=== PATIENT | male | born 1970 | race Caucasian/White ===

== ENCOUNTER 2024-05-04 22:56 | Day surgery (SDC) | payer BC, SELFPAY ==
[2024-05-04 18:43] VITALS: BP 165/111
[2024-05-04 19:03] LABS: % Basophils 0.5 % (0-2); % Eosinophils 1.2 % (0-6); % Immature Granulocytes 0.3 % (0-0.5); % Lymphocytes 13.2 % (20.5-51.1); % Monocytes 8.3 % (1.7-9.3); % Neutrophils 76.5 % (42.2-75.2); Absolute Basophils 0.1 10^3/uL (0-0.2); Absolute Eosinophils 0.1 10^3/uL (0-0.7); Absolute Lymphocytes 1.3 10^3/uL (1.2-3.4); Absolute Monocytes 0.8 10^3/uL (0.1-0.6); Absolute Neutrophils 7.8 10^3/uL (1.4-6.5); Hematocrit 43.2 % (39.0-52.0); Hemoglobin 15.9 g/dL (13.0-18.0); Mean Corp Hgb Conc. 36.8 g/dL (33.0-37.0); Mean Corpuscular Hgb 32.1 pg (27.0-31.0); Mean Corpuscular Volume 87.1 fL (80.0-94.0); Mean Platelet Volume 9.6 fL (7.4-10.4); Nucleated Red Blood Cells % 0 % (-); Platelet Count 236 10^3/uL (130-400); Red Blood Cell Count 4.96 10^6/uL (4.70-6.10); Red Cell Dist. Width 14.1 % (11.5-14.5); White Blood Cell Count 10.2 10^3/uL (4.8-10.8)
[2024-05-04 19:18] LABS: COVID-19 Antigen Negative (Negative)
[2024-05-04 19:25] LABS: ALT (SGPT) 113 U/L (0-50); AST (SGOT) 50 U/L (17-59); Albumin 4.9 g/dl (3.5-5.0); Alkaline Phosphatase 85 U/L (38-126); Blood Urea Nitrogen 13 mg/dl (9-20); Calcium 9.9 mg/dl (8.4-10.2); Carbon Dioxide 28 mmol/L (22-30); Glucose 132 mg/dl (70-99); Lipase 182 U/L (23-300); Total Bilirubin 4.1 mg/dl (0.2-1.3); Total Protein 7.6 g/dl (6.3-8.2); Troponin I 0.016 ng/ml; eGFR > 60.00
[2024-05-04 19:35] LABS: Chloride 101 mmol/L (98-107); Potassium 4.2 mmol/L (3.5-5.1); Sodium 136 mmol/L (135-145)
--- NOTE | 2024-05-04 20:13 | ED.GENMED ---
History of Present Illness
General
Chief Complaint: Abdominal Pain
Time Seen by Provider: 05/04/24 20:13
History of Present Illness
History of Present Illness:
HPI: Patient presents with upper abdominal pain associated with some intermittent nausea. This has been ongoing for the past day or 2. He had trouble sleeping last night because the pain was so significant. He denies having any abdominal
surgeries in the past. When I talked to him about his bilirubin of 4, he states that his dad has something similar and it sounds like he may have been diagnosed with Gilbert's in the past. He says he drinks alcohol but not on a daily basis
EXAM:
GENERAL: Well appearing but in mild distress, elevated BMI
HEENT: Moist oral mucosa, mild scleral icterus
CARDIOVASCULAR: No murmurs, borderline tachycardic heart rate, regular rhythm, No chest wall tenderness
PULMONARY: No respiratory distress, breath sounds are clear and equal
ABDOMEN: Soft with no peritoneal signs, mild to moderate upper abdominal tenderness more so on the right
NEUROLOGIC: Excellent strength all extremities, no coordination deficits
PSYCHIATRIC: Appropriate mental status, normal insight and judgement
EXTREMITIES: Nontender, no edema, moves all extremities equally
SKIN: No rash, no lesions
TIME OF INITIAL ENCOUNTER: 8:20 PM
NUMBER AND COMPLEXITY OF PROBLEMS ADDRESSED AT THE ENCOUNTER
� Chronic conditions affecting care: High blood pressure
� Acute Exacerbation and/or Progression of Chronic Illness: This is an acute problem
� Differential Diagnosis includes: Biliary colic, GERD, gastritis, esophagitis, cholecystitis, cholangitis
AMOUNT AND/OR COMPLEXITY OF DATA TO BE REVIEWED AND ANALYZED
� I performed an independent evaluation of and my interpretation is:
EKG:
CT:
X-rays:
Laboratory Studies: White count 10.2, hemoglobin 15.9, total bili is 4.1 with ALT of 113, lipase normal, alk phos 85, COVID-negative but predominantly indirect (direct 0.4)
Other: Gallbladder wall is top normal, no definite gallstones
� Review of other/old records: Mild concentric LVH noted on echo from 2020
� Clinical information was obtained by an independent historian: None needed
� Prescriptions/Medications Considered but not given: Considered Zosyn however the patient states he has a penicillin allergy which 'makes me blowup and
� Further testing considered but not performed:
RISK OF COMPLICATIONS AND/OR MORBIDITY OR MORTALITY OF PATIENT MANAGEMENT
� Social determinants of health affecting care: Lives at home
� Discussion with other providers: I spoke to general surgery who recommends hospitalist. I notified hospitalist, Dr. Willson.
� Escalation of care including admission/observation vs risk of discharge considered: The patient's total bili is 4.1 but is predominantly indirect. He thinks he may have been told that he has Gilbert's syndrome. However he is
at least borderline febrile with a temperature of 100.3. White count is at the higher end of normal at 10.2 and he has ongoing pain on reassessment despite Toradol. After Toradol he is no longer febrile. However the pain persists. He request
something stronger for pain. Will give a dose of Dilaudid.
Phy Exam
Physical Exam
Physical Exam:
See HPI
Course
Orders/Labs/Results
Orders:
Orders
05/04/24 18:45
Electrocardiogram (*1) Urgent
Reason for Study: Abdominal Pain
EKG- Treatment ONCE
05/04/24 18:53
COVID-19 Antigen Urgent
Source: Nasal Swab
Complete Blood Count/With Diff Urgent
Comprehensive Metabolic Panel Urgent
Direct Bilirubin Urgent
Comment: ADD ON
Lipase Urgent
Troponin I Urgent
05/04/24 20:14
Add On- LAB Urgent
Tests Added?: direct/indirect bili
US Abdomen Complete/Upper Urgent
Comment:
Reason For Exam: upper pain; TBili 4.1
05/04/24 20:20
0.9% Sodium Chloride 1000 ml [Nss] 1,000 ml IV BOLUS
Famotidine [Pepcid] 40 mg PO NOW STA
Ondansetron Injectable [Zofran] 4 mg IV NOW STA
Pantoprazole [Protonix IV] 40 mg IV NOW STA
05/04/24 20:22
Ketorolac [Toradol] 15 mg IV NOW STA
05/04/24 20:29
Famotidine [Pepcid] 20 mg IV NOW STA
05/04/24 20:30
Famotidine [Pepcid] 20 mg .ROUTE .STK-MED ONE
05/04/24 22:07
Ciprofloxacin 400 mg/[id number] [Cipro 400 mg] 200 ml IV NOW
MetroNIDAZOLE 500 MG/100 ML [Flagyl 500 mg] 100 ml IV NOW
05/04/24 22:11
HYDROmorphone [Dilaudid] 1 mg IV NOW STA
Abnormal Lab Results
05/04/24
18:53
MCH 32.1 H pg
(27.0-31.0)
Absolute Neuts (auto) 7.8 H 10^3/uL
(1.4-6.5)
Absolute Monos (auto) 0.8 H 10^3/uL
(0.1-0.6)
Neutrophils % 76.5 H %
(42.2-75.2)
Lymphocytes % 13.2 L %
(20.5-51.1)
Glucose 132 H mg/dl
(70-99)
Total Bilirubin 4.1 H mg/dl
(0.2-1.3)
ALT 113 H U/L
(0-50)
05/04/24 18:53
05/04/24 18:53
Vital Signs
Initial and Last Documented VS:
Initial Vital Signs
Temp Pulse Resp BP Pulse Ox
100.3 F 106 18 165/111 96
05/04/24 18:43 05/04/24 18:43 05/04/24 18:43 05/04/24 18:43 05/04/24 18:43
Last Documented Vital Signs
Temp Pulse Resp BP Pulse Ox
98.7 F 88 18 140/107 94
05/04/24 21:44 05/04/24 21:14 05/04/24 18:43 05/04/24 21:14 05/04/24 21:14
*Critical Care Note
Total Time (30-74mins, 75-104mins- exclusive of procedures): Not Applicable
ED Attending Note
-
Portions of this chart may have been created with voice recognition software.� Occasional wrong word or��sound alike� substitutions may have occurred due to the inherent limitations of voice recognition software.
Discharge Plan
Departure
Patient Disposition: Admit
Date of Disposition: 05/04/24
Time of Disposition: 22:08
Presentation/result/management discussed w/ accepting MD/DO: Hospitalist
Patient with high blood pressure during this ER visit?: Yes
Discharge Problem:
Acalculous cholecystitis
Prescriptions:
No Action
atorvastatin 20 mg tablet
20 mg PO DAILY
metoprolol succinate 50 mg tablet extended release 24 hr
50 mg PO DAILY
meloxicam 15 mg tablet
15 mg PO DAILYPRN PRN (Reason: mild pain)
losartan-hydrochlorothiazide 100-25 mg tablet
1 tab PO DAILY
Referrals:
Jojo Schulz [employer] [Family Provider] -
Interventions
Interventions:
*Risk Screen - Suicide Last Done: 05/04/24 18:43
*General Assessment Last Done: 05/04/24 18:43
*Neglect/Abuse Screening Last Done: 05/04/24 18:43
*ED COVID-19 Vaccine History Last Done: 05/04/24 18:43
EJ-Elawau-Nucitnfyon Assessment Last Done: 05/04/24 21:15
Discharge Date and Time
Print Language: HEBREW
[2024-05-04 20:30] LABS: Direct Bilirubin 0.4 mg/dl (0.0-0.4)
[2024-05-04] MEDS: NSS 1000 IV ×2 (20:34→23:37)
[2024-05-04] MEDS: PEPCID 20 MG IV (20:35)
[2024-05-04] MEDS: TORADOL 15 MG IV (20:35)
[2024-05-04] MEDS: ZOFRAN 4 MG IV (20:35)
[2024-05-04] MEDS: PROTONIX IV 40 MG IV (20:35)
[2024-05-04 20:41] VITALS: BMI 37.2
[2024-05-04 21:14] VITALS: BP 140/107
[2024-05-04] MEDS: DILAUDID 1 MG IV (22:29)
[2024-05-04] MEDS: FLAGYL 500 MG 100 IV (22:30)
--- NOTE | 2024-05-04 22:32 | HPS.HSE ---
Family Physician
-
Family Physician: Jojo Schulz
Chief Complaint
-
abdominal pain
History of Present Illness
54-year-old male history of Gilbert's, HTN, presenting with upper abdominal pain worse on the right side associate with intermittent nausea and fever and chills since yesterday. Patient has had bouts of pain like this previously which
spontaneously resolved on their own. Not triggered by food. He states that he has high bilirubin at baseline secondary to Gilbert's. He denies any diarrhea. He denies any chest pain shortness of breath.
He apparently had a barium swallowing test which previously showed dilated bile ducts and possibly passed stone.
He drinks alcohol occasionally. He denies smoking.
His sister and father had Gilbert's as well.
Medical History
Past Medical History
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
Past Surgical History: Reports None
Social History
Tobacco: Non-smoker
Alcohol: Occasional
Drug: None
Family History
Family History: Not pertinent
Allergies / Home Medications
Allergies reflects when Allergies were last updated in [facility].
Home Medications with original date entered in [facility]
Allergy/Medication List:
Allergies
Allergy/AdvReac Type Severity Reaction Status Date / Time
Penicillins Allergy Unknown Verified 05/04/24 20:26
Home Medications
losartan 100 mg-hydrochlorothiazide 25 mg tablet 1 tab PO DAILY 05/04/24
meloxicam 15 mg tablet 15 mg PO DAILYPRN PRN mild pain 05/04/24
metoprolol succinate 50 mg tablet,extended release 24 hr 50 mg PO DAILY 05/04/24
Review of Systems
-
History Source: Patient
A 12 point ROS was completed and negative except as noted: Yes
Constitutional: Reports No Symptoms
EENT: Reports No Symptoms
Respiratory: Reports No Symptoms
Cardiac: Reports No Symptoms
Abdomen/GI: Reports See HPI
: Reports No Symptoms
Musculoskeletal: Reports No Symptoms
Skin: Reports No Symptoms
Neurological: Reports No Symptoms
Endocrine: Reports No Symptoms
Hematologic/Lymphatic: Reports No Symptoms
Psych: Reports No Symptoms
Physical Exam
Vital Signs
Vital Signs
Temp Pulse Resp BP Pulse Ox
98.7 F 88 18 140/107 94
05/04/24 21:44 05/04/24 21:14 05/04/24 18:43 05/04/24 21:14 05/04/24 21:14
Physical Exam
General: Well Developed, Well Nourished and No Apparent Distress
HEENT: NormoCephalic, Moist mucous membranes and Atraumatic
Respiratory: Clear
Cardiac: S1/S2 and Regular Rhythm; No Murmur or Rub
GI: Soft, Non Distended, Normal Bowel Sounds and Tender (RUQ ); No Organomegaly
Rectal: Deferred by Provider
Musculoskeletal: No Clubbing, No Cyanosis and No Edema
Skin: No Rash
Neuro: Nonfocal/grossly intact
Laboratory Results
-
05/04/24 18:53
05/04/24 18:53
Laboratory Results
Total Bilirubin 4.1 mg/dl (0.2-1.3) H 05/04/24 18:53
AST 50 U/L (17-59) 05/04/24 18:53
ALT 113 U/L (0-50) H 05/04/24 18:53
Alkaline Phosphatase 85 U/L (38-126) 05/04/24 18:53
Troponin I 0.016 ng/ml 05/04/24 18:53
Lipase 182 U/L (23-300) 05/04/24 18:53
Data Reviewed
-
Lab Data: Labs Reviewed by me
Old Records: Reviewed
Impression/Plan
-
IMPRESSION:
PLAN:
# Likely developing acute cholecystitis
-Low-grade fever
-Lipase 180
-Abdominal ultrasound shows gallbladder sludge, no findings to suggest biliary tract dilatation, sonographic Mcmillan sign cannot be assessed
-IV fluids
-N.p.o.
-Levaquin/Flagyl
-Trend liver enzymes
-General Surgery consulted
# History of Gilbert's
-Bilirubin 4.1, no prior to compare to but was elevated in the past
Essential hypertension
-Continue losartan/HCTZ
History of bilateral hip replacements
Full code
DVT prophylaxis -SCDs
N.p.o.
[2024-05-04] MEDS: LEVAQUIN 150 IV (23:37)
[2024-05-04 23:42] VITALS: BP 113/79
[2024-05-04 23:43] VITALS: BMI 36.2
[2024-05-05] VITALS (11 sets, daily range): BP systolic 116–149; BP diastolic 70–84
[2024-05-05] MEDS: DILAUDID 0.5 MG IV (04:49)
[2024-05-05] MEDS: FLAGYL 500 MG 100 IV ×3 (05:27→21:54)
--- NOTE | 2024-05-05 07:56 | CON.GS ---
Addendum entered and electronically signed by David Santana MD 05/05/24 09:00:
Patient seen and examined.
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 Mr. Wright states that he has had intermittent episodes over the past several months occurring on a monthly to weekly
basis. He describes upper abdominal pain which is worse in the RUQ. No clear association with prior attacks with oral intake or time of day, history is somewhat limited due to patient's memory of the events. Previous episodes would last hours to
a day before self resolving. Current severity of pain and persistence of symptoms prompted presentation to the ED. Intermittent nausea and fevers. He denies any jaundice, pale stools. He does report some darker urine during his current episode.
Gen: uncomfortable
Abd: obese, soft, tender to palpation in RUQ, positive Mcmillan's sign, distended, non-peritoneal
Labs and ultrasound were reviewed
Patient is a 54 yo M p/w likely acute on chronic cholecystitis
The natural history and pathophysiology of biliary stone disease was briefly reviewed. Anatomy was reviewed. Workup including labs and imaging were reviewed. Options for management including medical management with antibiotics and further workup
with CT or HIDA scan were considered. Given his persistence of pain and clinical history we recommend cholecystectomy.
Plan for laparoscopic cholecystectomy with possible cholangiogram. The procedure itself, as well as the risks, benefits, and alternatives was discussed. Specifically, we discussed the risks of bleeding, infection, injury to surrounding structures
(bowel, bile ducts), CBD injury, need for open procedure. Typical postprocedure recovery was discussed. All questions answered. Consent signed.
-- Laparoscopic cholecystectomy
-- NPO, IVF
-- Antibiotics: Zosyn
-- Pain control: Tylenol and IV Dilaudid as needed
Original Note:
Consultation
-
Performing Provider: Remberto Barrios MD ; David Santana MD
Reason for Consultation: Abdominal pain
Medical History
-
Chief Complaint: Upper abdominal pain
History of Present Illness:
54-year-old male with known history of Gilbert's, hypertension presented with upper abdominal pain for 3 days. Patient also report intermittent nausea and fevers and chills for 1 day with current symptoms. Patient reportedly had multiple similar
episodes in the past which resolved without any intervention. Patient denied any known relation of food intake with the pain. Patient denied any chest pain, shortness of breath, change in color of stools. Patient reports he noticed ' [employer]'
colored urine today in the hospital.
Patient report he has had high bilirubin at baseline secondary to Gilbert's on his routine lab work for many years.
Past Medical History
Past Medical History: HTN and Other (Gilbert)
Past Surgical History: None
Social History
Tobacco: Non-Smoker
Alcohol: Occasional
Drug: None
Family History
Family History: Reviewed & Not Pertinent (Positive for Gilbert-Sister and father)
Allergies / Home Medications
Allergy/AdvReac Type Severity Reaction Status Date / Time
Penicillins Allergy Unknown Verified 05/04/24 20:26
�Medication �Instructions �Recorded �Confirmed �Type
losartan 100 1 tab PO DAILY 05/04/24 05/04/24 History
mg-hydrochlorothiazide 25 mg tablet
meloxicam 15 mg tablet 15 mg PO DAILYPRN PRN mild pain 05/04/24 05/04/24 History
metoprolol succinate 50 mg 50 mg PO DAILY 05/04/24 05/04/24 History
tablet,extended release 24 hr
Review of Systems
-
History Source: Patient
All other systems: Negative unless noted
Abdomen/GI: Abdominal Pain and Nausea
A 10 point review of systems was completed, and was negative except as per HPI.
Physical Exam
Vital Signs
Temp Pulse Resp BP Pulse Ox
98.3 F 86 18 113/79 95
05/04/24 23:42 05/04/24 23:42 05/04/24 23:42 05/04/24 23:42 05/04/24 23:42
05/04/24 05/05/24 05/06/24
06:59 06:59 06:59
Actual Weight 138.374 kg
Body Mass Index (BMI) 36.2
Lab Results
WBC 10.2 10^3/uL (4.8-10.8) 05/04/24 18:53
Hgb 15.9 g/dL (13.0-18.0) 05/04/24 18:53
Hct 43.2 % (39.0-52.0) 05/04/24 18:53
Plt Count 236 10^3/uL (130-400) 05/04/24 18:53
Abs Immat Gran (auto) 0.0 10^3/uL (0-0.05) 05/04/24 18:53
Neutrophils % 76.5 % (42.2-75.2) H 05/04/24 18:53
Physical Exam
General: Other (Uncomfortable due to abdominal pain)
GI: Tender (Right upper quadrant) and Distended
Neuro: Awake, Alert and Oriented
Psych: Calm
Data Reviewed
-
Ultrasound: Image Personally Visualized and interpreted, Report Reviewed by me, Discussed with Physician and Discussed with Patient
Labs: Labs Reviewed by me, Discussed with Physician and Discussed with Patient
Total Time Spent with Patient (in minutes): 20
Assessment / Plan
-
54-year-old male presented with right upper quadrant pain-symptoms and imaging studies consistent with acute cholecystitis
Acute symptomatic cholecystitis
-Lap cholecystectomy with intraoperative cholangiogram today
-N.p.o. with IV fluids for now while awaiting the procedure
-IV Dilaudid and p.o. Tylenol for pain
-Antiemetics as needed
Discussed the procedure with patient at bedside. Reviewed indications for cholecystectomy. Patient in agreement to proceed with surgery for definitive management. Laparoscopic cholecystectomy was reviewed in detail including the operative
technique and and potential operative findings with their management. Discussed benefits of surgery and risks such as but not limited to bleeding, infectious or wound related complications, iatrogenic injury to surrounding viscera.
We discussed the variable timeframe of postoperative recovery and hospitalization pending operative findings. Patient verified understanding
[2024-05-05] MEDS: HYZAAR 100-25 TABLET PO (08:00)
[2024-05-05 08:08] LABS: AST (SGOT) 35 U/L (17-59); Albumin 3.9 g/dl (3.5-5.0); Blood Urea Nitrogen 16 mg/dl (9-20); Carbon Dioxide 27 mmol/L (22-30); Estimated Creatinine Clearance 120 ml/min; Glucose 126 mg/dl (70-99); Total Bilirubin 3.8 mg/dl (0.2-1.3); Total Protein 6.4 g/dl (6.3-8.2); eGFR > 60.00
[2024-05-05 08:17] LABS: ALT (SGPT) 82 U/L (0-50); Alkaline Phosphatase 70 U/L (38-126); Chloride 103 mmol/L (98-107); Sodium 135 mmol/L (135-145)
[2024-05-05] MEDS: TOPROL XL 50 MG PO (08:38)
[2024-05-05] MEDS: DILAUDID 1 MG IV ×2 (08:44→12:47)
[2024-05-05 09:01] LABS: % Basophils 0.2 % (0-2); % Eosinophils 1.1 % (0-6); % Immature Granulocytes 0.5 % (0-0.5); % Lymphocytes 14.9 % (20.5-51.1); % Monocytes 10.6 % (1.7-9.3); % Neutrophils 72.7 % (42.2-75.2); Absolute Eosinophils 0.1 10^3/uL (0-0.7); Absolute Lymphocytes 1.2 10^3/uL (1.2-3.4); Absolute Monocytes 0.9 10^3/uL (0.1-0.6); Hematocrit 38.8 % (39.0-52.0); Hemoglobin 13.7 g/dL (13.0-18.0); Mean Corp Hgb Conc. 35.3 g/dL (33.0-37.0); Mean Corpuscular Hgb 31.6 pg (27.0-31.0); Mean Corpuscular Volume 89.6 fL (80.0-94.0); Mean Platelet Volume 9.9 fL (7.4-10.4); Nucleated Red Blood Cells % 0 % (-); Platelet Count 188 10^3/uL (130-400); Red Blood Cell Count 4.33 10^6/uL (4.70-6.10); Red Cell Dist. Width 14.4 % (11.5-14.5); White Blood Cell Count 8.2 10^3/uL (4.8-10.8)
--- NOTE | 2024-05-05 09:19 | W.SUR.PREOP ---
Pre-Operative Surgical Note
-
I have examined this patient prior to the performance of the scheduled procedure.
The patient's condition is unchanged from the time of the current History and
Physical and the patient is able to undergo the scheduled procedure.
--- NOTE | 2024-05-05 11:56 | W.PN.HOSP.TC ---
Today's Communication/Plan
-
Continue with IV antibiotics pending cholecystectomy
Plan for OR in Afternoon
Repeat LFTs in the morning
Assessment / Plan
Assessment / Plan
#Acute cholecystitis -- calculous versus acalculous
-RUQ pain with low-grade fever on arrival; abdominal US showed gallbladder sludge but no obvious stones
-Patient was receiving analgesics and sonographic Mcmillan sign was unable to be assessed
-Was started empirically on levofloxacin and metronidazole for bowel coverage
-Was evaluated by surgery team, planning for OR lap kapil today
-Currently n.p.o. and on IVF
-Continue IV antibiotics
-Trend LFTs following procedure
#Fatty liver -- NAFLD vs JOSH
-Ultrasound today showed extensive steatosis of the liver
-Unclear of his alcohol history, does have an obese habitus
-Should follow-up outpatient to monitor LFTs, consider antihyperlipidemic therapy/SGLT inhibitor
#History of Gilbert's
-Chronic, bilirubin 4.1, no previous labs the patient states this is near baseline
-Will trend daily LFTs as above to monitor for worsening/gallstone disease
#Essential hypertension
-Chronic, no known history of hypertensive systemic disease
-Home medications include losartan and hydrochlorothiazide daily
-BP well-controlled here despite pain
#History of bilateral hip replacements
#Obesity
CODE STATUS: Full code
DVT prophylaxis: SCDs
Diet: NPO, plan for diet after procedure
Anticipated Discharge: 24 - 48 hours
Subjective/Interval History
-
Date of Service: May 05, 2024
Seen and examined at bedside this morning. Plan for OR this afternoon. Patient states he had ongoing abdominal pain though no worse than admission. He denies any chest pain, shortness of breath, fevers or chills, urinary issues, paresthesia or
weakness. Denies abnormal bleeding or bruising. States he did have some nausea this morning though did not need to vomit and is improved.
Objective Data
-
Labs:
Laboratory Results
05/05/24
06:24
WBC 8.2
Hgb 13.7
Hct 38.8 L
Plt Count 188 D
Sodium 135
Potassium 4.0
Chloride 103
Carbon Dioxide 27
BUN 16
Creatinine 1.1
Glucose 126 H
Calcium 9.0
Total Bilirubin 3.8 H
AST 35
ALT 82 H
Alkaline Phosphatase 70
Vital Signs:
Vital Signs
Temp Pulse Resp BP Pulse Ox
98.1 F 72 19 145/73 98
05/05/24 07:12 05/05/24 08:38 05/05/24 07:12 05/05/24 08:38 05/05/24 07:12
I&O
05/04/24 05/05/24 05/06/24
06:59 06:59 06:59
Intake Total 750 / 750
Balance 750 / 750
Review of Systems
-
History Source: Patient
All other systems: Reviewed and negative
Physical Exam
-
General: No Apparent Distress, Comfortable and Obese
HEENT: Normocephalic, Atraumatic, Moist Mucous Membranes and Anicteric
Respiratory: Clear to Auscultation and Non Labored Respirations
Cardiac: Regular Rhythm and S1/S2; Negative Murmur, Rub or Gallop
GI: Soft, Nondistended, Normal Bowel Sounds and Tender (RUQ tenderness to palpation, no peritoneal signs)
Musculoskeletal: No Clubbing, No Cyanosis and No Edema
Skin: Warm and Dry; Negative Rash or Jaundice
Neuro: AO x 3, Nonfocal/Grossly Intact and Central Nerve's Intact
Data Reviewed
-
Labs: Labs Reviewed by me and Discussed with Patient
[2024-05-05] MEDS: NSS 1000 IV (12:46)
--- NOTE | 2024-05-05 18:41 | CM ---
met with patient at bedside.patient lives alone in apartment with 30 steps to enter,then everything is on one level,he amb i and is i with his adl's.antoine quiñonez documentation liaison is pcp and he uses [facility].he has had a vn inpast but does
not rememn=[facility].no ip rehab episodes.
pmh:htn,bl hip replacements,gilberts disease
patient is adm with abd pain,on ivf,iv abx, went to or this afternooon for a lap kapil.patient has declined a vn and will dc home with no needs.
--- NOTE | 2024-05-05 18:55 | W.IMMPOSTOP ---
Addendum entered and electronically signed by David Santana MD 05/08/24 16:12:
[facility]#[id number]
Original Note:
Surgical Immed Post Op Note
-
Primary Surgeon: Max
Assisting Surgeon: None
Pre-op Diagnosis: Acute cholecystitis
Post-op Diagnosis: Acute cholecystitis
Procedure Performed: Laparoscopic cholecystectomy with IOC
Anesthesia Type: General
Specimen / Cultures:
1. Gallbladder
Estimated Blood Loss: 11 cc
Complications: None
Operative Findings:
1. Severe fatty liver disease limiting exposure, mild/moderate cholecystitis
2. Critical view of safety
3. IOC with anatomy confirmed and no filling defects
[2024-05-05] MEDS: NSS IV (21:53)
[2024-05-05] MEDS: LEVAQUIN 150 IV (23:35)
[2024-05-06 03:05] VITALS: BP 127/73
[2024-05-06] MEDS: FLAGYL 500 MG 100 IV (05:20)
[2024-05-06] MEDS: TORADOL 10 MG IV (05:23)
[2024-05-06 07:26] LABS: % Basophils 0.1 % (0-2); % Immature Granulocytes 0.4 % (0-0.5); % Lymphocytes 6.6 % (20.5-51.1); % Monocytes 8.3 % (1.7-9.3); % Neutrophils 84.6 % (42.2-75.2); Absolute Lymphocytes 0.6 10^3/uL (1.2-3.4); Absolute Monocytes 0.8 10^3/uL (0.1-0.6); Absolute Neutrophils 7.6 10^3/uL (1.4-6.5); Hematocrit 37.4 % (39.0-52.0); Hemoglobin 13.8 g/dL (13.0-18.0); Mean Corp Hgb Conc. 36.9 g/dL (33.0-37.0); Mean Corpuscular Hgb 32.1 pg (27.0-31.0); Mean Platelet Volume 9.8 fL (7.4-10.4); Nucleated Red Blood Cells % 0 % (-); Platelet Count 205 10^3/uL (130-400)
[2024-05-06] MEDS: NSS IV (07:28)
[2024-05-06] MEDS: HYZAAR 100-25 TABLET 1 TAB PO (07:42)
[2024-05-06] MEDS: TOPROL XL 50 MG PO (07:42)
[2024-05-06 07:53] LABS: ALT (SGPT) 118 U/L (0-50); AST (SGOT) 76 U/L (17-59); Albumin 3.8 g/dl (3.5-5.0); Alkaline Phosphatase 86 U/L (38-126); Blood Urea Nitrogen 17 mg/dl (9-20); Calcium 8.9 mg/dl (8.4-10.2); Carbon Dioxide 22 mmol/L (22-30); Chloride 105 mmol/L (98-107); Estimated Creatinine Clearance > 125 ml/min; Glucose 148 mg/dl (70-99); Potassium 4.2 mmol/L (3.5-5.1); Sodium 135 mmol/L (135-145); Total Bilirubin 2.7 mg/dl (0.2-1.3); Total Protein 6.4 g/dl (6.3-8.2); eGFR > 60.00
[2024-05-06 07:55] VITALS: BP 129/98
[2024-05-06 10:41] LABS: Direct Bilirubin 0.3 mg/dl (0.0-0.4)
--- NOTE | 2024-05-06 11:48 | W.PN.GS2 ---
Today's Communication / Plan
-
Dispo planning
Assessment / Plan
-
54 yo male with h/o gilbert's who is POD #1 lap kapil for ACC with normal intraop cholangiogram
AFVSS
No leukocytosis
LFT's trended down
Tolerating diet
--PO meds for pain control
--Continue low fat diet
--OOB/Ambulate
--Incisional care discussed
--Clear for d/c from surgical standpoint updated d/c paperwork with post op instructions, final dispo as per medical team
Subjective Data
-
Date of Service: May 06, 2024
Patient seen and examined at bedside with Dr. Ashford. Denies n/v. Tolerating diet. Preop pain resolved. Some incisional soreness present. Passing flatus.
Objective Data
-
Intake and Output
05/05/24 05/06/24 05/07/24
06:59 06:59 06:59
Intake Total 750 / 750 2530 / 2530
Output Total 850 / 850
Balance 750 / 750 1680 / 1680
Intake:
Oral fluids 480 / 480
IV fluids (Total) 500 / 500 1600 / 1600
Normosol 300 / 300
IV piggybacks 250 / 250 450 / 450
Output:
Urine, Voided 850 / 850
Other:
Number of approximated MODERATE 1 2
amounts of urine
Number of approximated LARGE 4
amounts of urine
Vital Signs
Temp Pulse Resp BP Pulse Ox
97.6 F 79 14 129/98 96
05/06/24 07:55 05/06/24 07:55 05/06/24 07:55 05/06/24 07:55 05/06/24 07:55
Lab Results
05/06/24 06:40
05/06/24 06:40
Calcium 8.9 mg/dl (8.4-10.2) 05/06/24 06:40
Total Bilirubin 2.7 mg/dl (0.2-1.3) H 05/06/24 06:40
Direct Bilirubin 0.3 mg/dl (0.0-0.4) 05/06/24 06:40
AST 76 U/L (17-59) H 05/06/24 06:40
ALT 118 U/L (0-50) H 05/06/24 06:40
Alkaline Phosphatase 86 U/L (38-126) 05/06/24 06:40
Total Protein 6.4 g/dl (6.3-8.2) 05/06/24 06:40
Albumin 3.8 g/dl (3.5-5.0) 05/06/24 06:40
Physical Exam
-
NAD
ABD soft, mild incisional tenderness, nd, [employer]
Incisions with intact surgical glue, no erythema
[2024-05-06 11:57] LABS: HDL Cholesterol 41 mg/dl; LDL Cholesterol, Calculated 126 mg/dl; Total Cholesterol 179 mg/dl (50-199); Triglyceride 60 mg/dl (10-149); Very Low Density Lipoprotein 12 mg/dl (0-30)
--- NOTE | 2024-05-06 12:45 | W.PN.HOSP.TC ---
Today's Communication/Plan
-
Discharge
Assessment / Plan
Assessment / Plan
#Acute cholecystitis -- calculous versus acalculous
-RUQ pain with low-grade fever on arrival; abdominal US showed gallbladder sludge but no obvious stones
-Patient was receiving analgesics and sonographic Mcmillan sign was unable to be assessed
-Was started empirically on levofloxacin and metronidazole for bowel coverage
-Was evaluated by surgery team, planning for OR lap kapil today
-Resumed on diet, antibiotics discontinued
-Signs of bowel function present this morning
#Fatty liver -- NAFLD vs JOSH, denies extensive alcohol history
-Ultrasound today showed extensive steatosis of the liver
-Unclear of his alcohol history, does have an obese habitus
-Should follow-up outpatient to monitor LFTs, consider antihyperlipidemic therapy/SGLT inhibitor
-Advised diet and exercise as tolerable, should ask PCP about GLP-1 agonist for weight loss
#History of Gilbert's
-Chronic, bilirubin 4.1, no previous labs the patient states this is near baseline
-Will trend daily LFTs as above to monitor for worsening/gallstone disease
#Essential hypertension
-Chronic, no known history of hypertensive systemic disease
-Home medications include losartan and hydrochlorothiazide daily
-BP well-controlled here despite pain
#History of bilateral hip replacements
#Obesity
CODE STATUS: Full code
DVT prophylaxis: SCDs
Diet: NPO, plan for diet after procedure
Anticipated Discharge: Today
Subjective/Interval History
-
Date of Service: May 06, 2024
Seen and examined at the bedside. No acute events. Successful lap kapil performed yesterday. States that he is moving flatus but has not had bowel movement as of early this morning. Denies any other acute complaints including chest pain,
shortness of breath, fevers or chills.
He did have some questions about the fatty liver diagnosis and things he can do to help reduce this. I advocated for diet and exercise, added on metabolic labs, consider statin for optimization. Told him that he should follow-up with his PCP,
consider Ozempic as he has not been able to exercise as much recently due to musculoskeletal issues.
Objective Data
-
Labs:
Laboratory Results
05/06/24
06:40
WBC 9.0
Hgb 13.8
Hct 37.4 L
Plt Count 205
Sodium 135
Potassium 4.2
Chloride 105
Carbon Dioxide 22
BUN 17
Creatinine 0.8
Glucose 148 H
Calcium 8.9
Total Bilirubin 2.7 H
AST 76 H
ALT 118 H
Alkaline Phosphatase 86
Vital Signs:
Vital Signs
Temp Pulse Resp BP Pulse Ox
97.6 F 79 14 129/98 96
05/06/24 07:55 05/06/24 07:55 05/06/24 07:55 05/06/24 07:55 05/06/24 07:55
I&O
05/05/24 05/06/24 05/07/24
06:59 06:59 06:59
Intake Total 750 / 750 2530 / 2530
Output Total 850 / 850
Balance 750 / 750 1680 / 1680
Review of Systems
-
History Source: Patient
All other systems: Reviewed and negative
Physical Exam
-
General: Well Nourished, No Apparent Distress and Comfortable
HEENT: Normocephalic, Atraumatic and Moist Mucous Membranes
Respiratory: Clear to Auscultation and Non Labored Respirations; Negative Wheezes, Rales or Rhonchi
Cardiac: Regular Rhythm and S1/S2; Negative Murmur, Rub or Gallop
GI: Soft, Nontender, Nondistended and Normal Bowel Sounds
Musculoskeletal: No Clubbing, No Cyanosis and No Edema
Skin: Warm and Dry; Negative Rash or Jaundice
Neuro: AO x 3, Nonfocal/Grossly Intact and Central Nerve's Intact
Data Reviewed
-
Labs: Labs Reviewed by me
--- NOTE | 2024-05-06 12:53 | W.DCSUMMARY ---
Discharge Summary
Discharge Data
Date of Admission: 05/04/24
Date of Discharge: 05/06/24
-
Pending Results: No
Hospital Course
Presented to the hospital with right upper quadrant pain, diagnosis of acute cholecystitis was made. Surgery consulted and performed lap kapil on 05/05/2024. Patient was briefly treated with IV Zosyn for biliary coverage. Antibiotic stopped after
surgery. Patient felt well and had signs of adequate bowel status prior to discharge.
During procedure was found to have significant degree of hepatic steatosis. Denies any significant alcohol history. Suspect metabolic etiology with NAFLD. Lipid panel here had LDL >120, in the context of his NAFLD ESR, and high intensity statin.
States he had muscle aches from statin in the past and had to stop, I also ordered co-Q10 and told him to use this with a statin. Advised to call primary care and stop taking atorvastatin if he developed muscle aches despite co-Q10.
Discharge Plan
-
Patient Disposition: Home (Routine Discharge)
Discharge Diagnosis/Procedures: Cholecystitis s/p laparoscopic cholecystectomy
Condition: Good
Additional Diets: If problems with bloating or diarrhea switch to a low fat diet
Additional Activity: No heavy lifting over 20lbs for the next 2 weeks
Driving Restrictions: No driving for 24 hours
Bathing Restrictions: OK to Shower
Wound Care: The glue over your incisions will flake off in 2-3 weeks. Stitches beneath the glue will dissolve on their own. Use ice to the abdomen to reduce any bruising or swelling. Keep incisions clean and dry.
Activity Restrictions/Additional Instructions:
Call for fevers (>100.5), nausea or vomiting, worsening abdominal pain, yellowing of the eyes or skin
If you develop muscle aches on atorvastatin despite co-Q10, stop taking atorvastatin and call your family doctor
Instructions: Cholecystectomy, Laparoscopic Surgery, Metabolic dysfunction-associated steatotic liver disease
Referrals:
Jojo Schulz NP [Family Provider] -
Lambour,David J., MD [Active] - in two to four weeks
Additional Discharge Medication Instructions: Start atorvastatin 40 mg nightly
Take co-Q10 with atorvastatin
Prescriptions:
New
acetaminophen 325 mg tablet
650 mg PO Q4HPRN PRN (Reason: mild pain) Qty: 1 0RF
oxycodone 5 mg tablet
5 mg PO Q4HPRN PRN (Reason: breakthrough/severe pain) Qty: 5 0RF
atorvastatin 40 mg tablet
40 mg PO HS 30 Days Qty: 30 0RF
coenzyme Q10 [CoQ-10] 100 mg capsule
100 mg PO HS 30 Days Qty: 30 0RF
Rx Instructions:
Take 1 tablet at night with statin, can increase to 2 tabs if needed
Continued
metoprolol succinate 50 mg tablet extended release 24 hr
50 mg PO DAILY
meloxicam 15 mg tablet
15 mg PO DAILYPRN PRN (Reason: mild pain)
losartan-hydrochlorothiazide 100-25 mg tablet
1 tab PO DAILY
Discharge Orders:
Discharge Patient (As Directed); Ordered 05/06/24
Ordered By: Lm Kunz
Discharge Date and Time
Print Language: ARMENIAN
--- NOTE | 2024-05-06 13:31 | CM ---
Pt discharged prior to CM meeting with him
Per chart review, no dc needs
Discharge Disposition- home, no needs
[2024-05-06 13:51] LABS: Glycohemoglobin (HgbA1c) 6.4 % (4.0-5.6)
== END 2024-05-06 13:15 | disposition home or self-care (01) ==
LOC: SDS 22:56
PROVIDERS: Hospitalist; Internal Medicine; Student in an Organized Health Care Education/Training Program; CONSULT PHYSICIAN Surgery; EMERGENCY PHYSICIAN Emergency Medicine; FAMILY PHYSICIAN Nurse Practitioner Adult Health
DX: K81.9 Cholecystitis, unspecified (principal); K76.0 Fatty (change of) liver, not elsewhere classified
CPT/HCPCS: 47563; 88304; 74300; 76000; 76700; 80053; 80061; 82248; 83036; 83690; 84484; 85025; 87811; 93005; 96361; 96374; 96375; 99285